=== PATIENT | female | born 1980 | race Caucasian/White ===

== ENCOUNTER 2019-02-11 20:37 | Emergency (ER) | payer SELFPAY ==
[~2019-02-11] VITALS: Ht 167.6 cm; Wt 77.6 kg
[~2019-02-11 20:37] MED LIST: HYDR-4011 PO; IBUP-1542 PO
[2019-02-11 20:40] VITALS: BP 190/113; PULSE 73; RESP 16; Ht 167.6 cm; Wt 77.6 kg
[2019-02-11] MEDS ORDERED: IBUPROFEN 600 MG TAB PO ONE (22:00)
--- NOTE | 2019-02-11 22:13 | ERD ---
ER Documentation Chief Complaint Chief Complaint RIGHT WRIST PAIN S/P FALL. HPI Patient is a 38-year-old female presents ER for concerns of right wrist pain after a fall injury yesterday. Patient states she was horse playing with her children when she fell backwards and landed on her outstretched hand. Patient reports swelling and pain to her wrist. Patient is right-hand dominant. Patient denies any previous fractures or dislocations to the affected extremity. Patient reports taking ibuprofen for pain. ROS All systems reviewed and are negative except as per history of present illness. Medications Home Meds Active Scripts Hydrocodone/Acetaminophen (Pelham 5-325 Tablet) 1 Each Tablet, 1 TAB PO Q6H PRN for PAIN, #7 TAB Prov:CATHIE TERRELL PA-C 02/11/19 Ibuprofen* (Motrin*) 600 Mg Tab, 600 MG PO Q6, #30 TAB Prov:CATHIE TERRELL PA-C 02/11/19 Allergies Allergies: Coded Allergies: No Known Allergy (Unverified , 02/11/19) PMhx/Soc Medical and Surgical Hx: pt denies Medical Hx, pt denies Surgical Hx Hx Alcohol Use: No Hx Substance Use: No Hx Tobacco Use: No Smoking Status: Never smoker FmHx Family History: No diabetes Physical Exam Vitals Vital Signs Date Temp Pulse Resp B/P (MAP) Pulse Ox O2 O2 Flow FiO2 Time Delivery Rate 02/11/19 98.2 73 16 190/113 98 20:40 (138) Physical Exam GENERAL: Well-developed, well-nourished female. Appears in no acute distress. HEAD: Normocephalic, atraumatic. EYES: Pupils are equally reactive bilaterally. EOMs grossly intact. No conjunctival erythema. ENT: Moist mucous membranes. No uvula deviation. No kissing tonsils. EXTREMITIES: Equal pulses bilaterally. No peripheral clubbing, cyanosis or edema. No unilateral leg swelling. NEUROLOGIC: Alert and oriented. Normal speech. Steady gait. SKIN: Normal color. Warm and dry. No rashes or lesions. RUE: Moderate of swelling noted around the wrist joint. Skin intact. Decreased range of motion of the wrist secondary to pain. Tender to palpation over the distal radius and ulna. Nontender palpation of the proximal radius/ulna. Sensation intact to light touch. Neurovascularly intact. (Able to give thumbs up, make an ok sign, cross digits 2 and 3, thumb to pinky opposition. 2+ RP.) No snuffbox tenderness. Results 24 hrs Current Medications Medications Dose Sig/[place]ell Start Time Status Last (Trade) Ordered Route PRN Stop Time Admin Dose Reason Admin Ibuprofen 600 mg ONCE ONCE 02/11/19 DC 02/11/19 (Motrin) PO 22:00 21:36 02/11/19 22:01 Procedures/MDM ED COURSE: The patient was stable throughout ED course. I kept the patient and/or family informed of laboratory and diagnostic imaging results throughout the ED course. DIAGNOSTIC IMAGING: Read by radiologist. DIAGNOSTIC IMAGING REPORT Patient: PRABHA MICHAEL : 1980 Age: 38 Sex: F MR #: [id number] DOS: 02/11/192130 Ordering MD: CATHIE TERRELL PA-C Location: [facility] Room/Bed: PROCEDURE: XR Right Wrist. CLINICAL INDICATION: Trauma. Right wrist pain. TECHNIQUE: Four views. Frontal, lateral, and obliques. COMPARISON: No prior studies are available for comparison. FINDINGS: There is an acute transverse fracture through the distal metaphysis of the radius with mild posterior displacement. There is also a nondisplaced fracture of the distal metaphysis of the ulna. There is no other fracture and there is no dislocation. Articular surfaces are intact. There is soft tissue swelling overlying the fractures. The carpal bones are intact. There is no lytic or blastic lesion. There is no radiopaque foreign body. IMPRESSION: 1. Acute fractures of the distal radius and ulna with overlying soft tissue swelling. 2. Otherwise unremarkable images of the right wrist. RPTAT: QQ .Jerome Barton MD, Date Time Electronically viewed and signed by .Jerome Barton MD, on 02/11/2019 21:51 .R/ CC: CATHIE TERRELL PA-C [id number] PROCEDURES: SPLINT APPLICATION: The patient was verbally consented at bedside prior to splint application. Patient was explained the risks, benefits and alternatives to this procedure. The patient was neurovascularly intact prior to and status post application of the splint. The patient tolerated the procedure well with no complications. Splint type: Volar wrist splint, shoulder sling Extremity: Right Indication: Radius and ulna fracture MEDICATIONS GIVEN: Ibuprofen Patient tolerated medication well with no adverse reactions. Patient reported improvement in pain. MEDICAL DECISION MAKING: This is a 38-year-old female presents ER for concerns of right wrist pain after fall injury yesterday. Vital signs were reviewed. Patient was afebrile. X-ray imaging was concerning for distal ulna and radius fracture. Discussed x-ray imaging with supervising physician Dr. Nowak, who do not feel that patient required reduction at this time. Patient was placed in a splint given a sling. Patient advised to remain in splint and sling until seen and cleared by mri specialist. Low suspicion for open fracture, neurovascular injury, compartment syndrome. Patient advised to follow-up with mri specialist. Referral information provided. RESCRIPTIONS: Ibuprofen, Pelham The patient has been prescribed Pelham during this encounter. The patient has been warned about the use of narcotics. The patient should not drive or operate heavy machinery while taking this medication. The patient was also warned about the addictive properties of narcotic medications. Narcan prescription was NOT provided given the following criteria: 1. Less than 10 tablets of Pelham 5 mg were prescribed. 2. Concomitant opiate and benzodiazepine prescriptions were not provided. 3. There was no obvious evidence of prior history of opiate abuse or abuse. DISCHARGE: At this time, patient is stable for discharge and outpatient management. I have instructed the patient to follow-up with his/her primary care physician in 1-2 days. I have discussed with the patient the possibility of needing to see an mri specialist for further workup and imaging if the pain persists. I have instructed the patient to promptly return to the ER for any new or worsening symptoms including increased pain, swelling, redness, warmth or fever. The patient and/or family expressed understanding of and agreement with this plan. All questions were answered. Home care instructions were provided. Disclaimer: Inadvertent spelling and grammatical errors are likely due to EHR/dictation software use and do not reflect on the overall quality of patient care. Also, please note that the electronic time recorded on this note does not necessarily reflect the actual time of the patient encounter. Departure Diagnosis: Primary Impression: Fracture of right radius and ulna Encounter type: initial encounter Fracture type: closed Qualified Codes: S52.91XA - Unspecified fracture of right forearm, initial encounter for closed fracture; S52.201A - Unspecified fracture of shaft of right ulna, initial encounter for closed fracture Condition: Fair Patient Instructions: Radius And Ulna Fx, No Reduction Required Referrals: [facility] YOU HAVE RECEIVED A MEDICAL SCREENING EXAM AND THE RESULTS INDICATE THAT YOU DO NOT HAVE A CONDITION THAT REQUIRES URGENT TREATMENT IN THE EMERGENCY DEPARTMENT. FURTHER EVALUATION AND TREATMENT OF YOUR CONDITION CAN WAIT UNTIL YOU ARE SEEN IN YOUR DOCTORS OFFICE WITHIN THE NEXT 1-2 DAYS. IT IS YOUR RESPONSIBILITY TO MAKE AN APPOINTMENT FOR FOLOW-UP CARE. IF YOU HAVE A PRIMARY DOCTOR --you should call your primary doctor and schedule an appointment IF YOU DO NOT HAVE A PRIMARY DOCTOR YOU CAN CALL OUR PHYSICIAN REFERRAL HOTLINE AT IF YOU CAN NOT AFFORD TO SEE A PHYSICIAN YOU CAN CHOSE FROM THE FOLLOWING [facility] [address] [facility]. [facility] [address] [facility]. [facility] [address] [facility] [facility] [address] [facility]. [facility] [address] [facility]. [facility]. [address] [facility] YOU HAVE RECEIVED A MEDICAL SCREENING EXAM AND THE RESULTS INDICATE THAT YOU DO NOT HAVE A CONDITION THAT REQUIRES URGENT TREATMENT IN THE EMERGENCY DEPARTMENT. FURTHER EVALUATION AND TREATMENT OF YOUR CONDITION CAN WAIT UNTIL YOU ARE SEEN IN YOUR DOCTORS OFFICE WITHIN THE NEXT 1-2 DAYS. IT IS YOUR RESPONSIBILITY TO MAKE AN APPOINTMENT FOR FOLOW-UP CARE. IF YOU HAVE A PRIMARY DOCTOR --you should call your primary doctor and schedule and appointment IF YOU DO NOT HAVE A PRIMARY DOCTOR YOU CAN CALL OUR PHYSICIAN REFERRAL HOTLINE AT . IF YOU CAN NOT AFFORD TO SEE A PHYSICIAN YOU CAN CHOSE FROM THE FOLLOWING [facility]: [facility] [address] [place] [address] [facility] [place] [address] [place] [address] [facility] [address] [place] [address] [facility] Additional Instructions: Remain in splint until seen and cleared by mri specialist. Call your primary care doctor TOMORROW for an appointment during the next 1-2 days.See the doctor sooner or return here if your condition worsens before your appointment time. CATHIE TERRELL PA-C Feb 11, 2019 22:13
== END 2019-02-11 23:41 | disposition home or self-care (01) ==
LOC: FTE 20:37
DX: S52.201A Unspecified fracture of shaft of right ulna, initial encounter for closed fracture (principal); W18.39XA Other fall on same level, initial encounter; Y92.9 Unspecified place or not applicable